=== PATIENT | female | born 1945 | race Caucasian/White ===

== ENCOUNTER 2020-08-14 18:09 | Inpatient (IN) | payer MEDICARE, OTHER ==
[~2020-08-14] VITALS: Ht 0 cm; Wt 82.7 kg
[2020-08-14 22:00] VITALS: BP 144/65
[2020-08-14 22:40] VITALS: BP 144/65
[2020-08-15] MEDS ORDERED: NITROGLYCERIN 0.4 MG SL TAB SL PRN (00:15)
[2020-08-15] MEDS ORDERED: MORPHINE SULF INJ 2 MG/ML SYRINGE 1ML IV PRN (00:15)
[2020-08-15] MEDS ORDERED: IPRATROPIUM BROM 0.5 MG/2.5ML INH SOL NEB PRN (00:15)
[2020-08-15] MEDS ORDERED: DEXTROSE (50%) 50ML SYRG IV PRN (00:15)
[2020-08-15] MEDS ORDERED: ONDANSETRON HCL 4 MG/2 ML VIAL IV PRN (00:15)
[2020-08-15] MEDS ORDERED: SENNA 8.6 MG TAB PO PRN (01:01)
[2020-08-15] MEDS ORDERED: INFLUENZA QUAD 2020-2021 0.5 ML SYRG IM ONE (02:00)
[2020-08-15] MEDS ORDERED: PNEUMOCOCCAL VACC POLYS 25 MCG/0.5 ML VIAL IM ONE (02:00)
[2020-08-15] MEDS ORDERED: PRAV20TA3 PO (02:18)
[2020-08-15] MEDS ORDERED: ALEN1TAB32 PO (02:18)
[2020-08-15] MEDS ORDERED: [UNRECOGNIZED DRUG - CODE] PO (02:18)
[2020-08-15] MEDS ORDERED: FENO134C PO (02:22)
[2020-08-15] MEDS ORDERED: ESCI5TAB PO (02:22)
[2020-08-15] MEDS ORDERED: FAMO-12 PO (02:22)
[2020-08-15] MEDS ORDERED: HYDR-392 PO (02:22)
[2020-08-15] MEDS ORDERED: GLIM2TAB33 PO (02:24)
[2020-08-15] MEDS ORDERED: LISI-275 PO (02:24)
[2020-08-15] MEDS ORDERED: BACL10TA PO (02:27)
[2020-08-15] MEDS ORDERED: GABA300C10 PO (02:27)
[2020-08-15] MEDS ORDERED: ZOLP10TA6 PO (02:27)
[2020-08-15] MEDS ORDERED: RALO60TA13 PO (02:27)
[2020-08-15] MEDS: SODIUM CHLORIDE 0.9% 1,000 ML IV SCH ×2 (03:01→13:35)
[2020-08-15 05:00] VITALS: BP 148/65
[2020-08-15] MEDS: HYDROcodone-ACET 7.5/325MG TAB PO PRN ×3 (05:24→20:10)
[2020-08-15] MEDS: ACCU-CHEK COMFORT CURVE STRIP VI SCH ×4 (06:13→22:09)
[2020-08-15] MEDS: InsuLIN REG 1unit/0.01ml Soln (100units/ml) SC SCH ×4 (06:14→22:00)
[2020-08-15 06:59] LABS: Basophils # (auto) 0 10 ^3/uL (0-0.2); Eosinophils # (auto) 0.2 10 ^3/uL (0-0.8); Hemoglobin 10.5 g/dL (12.2-16.2); White Blood Cell 5.6 10^3/uL (4.4-10.8)
[2020-08-15 07:02] LABS: Basophils % (auto) 0.5 % (0.0-2.0); Eosinophils % (auto) 3.6 % (0.0-7.0); Hematocrit 32.3 % (36.0-46.0); Lymphocytes # (auto) 0.7 10 ^3/uL (0.4-5.4); Lymphocytes % (auto) 13.3 % (10.0-50.0); Mean Corpuscular Hgb Conc. 32.6 g/dL (32.0-36.0); Mean Corpuscular Volume 79.7 fL (80.0-100.0); Monocytes # (auto) 0.5 10 ^3/uL (0-1.3); Monocytes % (auto) 8.2 % (0.0-12.0); Neutrophils # (auto) 4.2 10 ^3/uL (1.6-8.6); Neutrophils % (auto) 74.4 % (37.0-80.0); Platelet Count (auto) 337 10^3/uL (140-450); Red Blood Cells 4.05 10^6/uL (4.0-5.20); Red Cell Distribution Width 18.7 % (11.8-14.3)
[2020-08-15 07:09] LABS: Chloride 104 mmol/L (98-107); Potassium 4.8 mmol/L (3.5-5.1); Sodium 134 mmol/L (136-145)
[2020-08-15 07:48] LABS: Anion Gap 3 (5-15); BUN/Creatinine Ratio 26.8; Blood Urea Nitrogen 15 mg/dL (7-18); Calcium 8.4 mg/dL (8.5-10.1); Carbon Dioxide 27 mmol/L (21-32); GFR African American 136 mL/min; GFR Non-African American 112 mL/min; Glucose 136 mg/dL (74-106)
[2020-08-15 08:00] VITALS: BP 147/72
[2020-08-15] MEDS: ZINC SULFATE 220mg CAP or TAB PO SCH ×2 (11:19→22:02)
[2020-08-15] MEDS: ASPirin 81 mg TAB PO SCH (11:19)
[2020-08-15] MEDS: ASCORBIC ACID 500 MG TAB PO SCH (11:20)
[2020-08-15] MEDS: levETIRAcetam 500 MG TAB PO SCH ×2 (11:20→22:02)
[2020-08-15] MEDS: METOPROLOL TARTRATE 25 MG TAB PO SCH ×2 (11:20→22:03)
[2020-08-15] MEDS: ENOXAPARIN SOD 40 MG/0.4 ML SYRINGE SC SCH (11:20)
[2020-08-15] MEDS: MULTIPLE VITAMIN TAB PO SCH (11:20)
[2020-08-15 12:00] VITALS: BP 141/65
[2020-08-15 17:00] VITALS: BP 144/72
[2020-08-15] MEDS ORDERED: cefTRIAXone 1GM/50ML D5W 50 ML IV ONE ×2 (18:45→21:45)
[2020-08-15] MEDS ORDERED: PANTOPRAZOLE 40 MG/10 ML VIAL INJ IV ONE (18:45)
[2020-08-15] MEDS ORDERED: AZITHROMYCIN 500MG/ 250ML 250 ML IV ONE (18:45)
[2020-08-15 20:00] VITALS: BP 136/72
[2020-08-15 22:00] VITALS: BP 136/72
[2020-08-15] MEDS: ZOLPIDEM TARTRATE 5 MG TAB PO PRN (22:03)
[2020-08-15] MEDS: PRAVASTATIN SODIUM 20 MG TAB PO SCH (22:03)
[2020-08-15] MEDS: AZITHROMYCIN 500MG/ 250ML 250 ML IV SCH (22:04)
[2020-08-16 01:55] LABS: Urine Bacteria FEW /hpf (None Seen); Urine Blood Negative /uL (Negative); Urine Specific Gravity 1.012 (1.001-1.035); Urine WBC 1 /hpf (0 - 5)
[2020-08-16] MEDS: SODIUM CHLORIDE 0.9% 1,000 ML IV SCH ×2 (02:55→16:15)
[2020-08-16 05:29] VITALS: BP 145/66
[2020-08-16] MEDS: InsuLIN REG 1unit/0.01ml Soln (100units/ml) SC SCH ×4 (06:39→21:51)
[2020-08-16] MEDS: ACCU-CHEK COMFORT CURVE STRIP VI SCH ×4 (06:39→21:51)
[2020-08-16 07:29] LABS: Basophils # (auto) 0 10 ^3/uL (0-0.2); Eosinophils # (auto) 0.2 10 ^3/uL (0-0.8); Neutrophils # (auto) 4.4 10 ^3/uL (1.6-8.6)
[2020-08-16 07:32] LABS: Basophils % (auto) 0.7 % (0.0-2.0); Eosinophils % (auto) 3.5 % (0.0-7.0); Hematocrit 33.4 % (36.0-46.0); Hemoglobin 10.7 g/dL (12.2-16.2); Mean Corpuscular Hemoglobin 25.6 pg (28.0-32.0); Mean Corpuscular Hgb Conc. 32.2 g/dL (32.0-36.0); Mean Corpuscular Volume 79.5 fL (80.0-100.0); Monocytes # (auto) 0.3 10 ^3/uL (0-1.3); Monocytes % (auto) 5.8 % (0.0-12.0); Platelet Count (auto) 355 10^3/uL (140-450); Red Cell Distribution Width 18.8 % (11.8-14.3); White Blood Cell 5.9 10^3/uL (4.4-10.8)
[2020-08-16 07:46] LABS: Calcium 8.3 mg/dL (8.5-10.1); Magnesium 2.4 mg/dL (1.6-2.6); Potassium 4.1 mmol/L (3.5-5.1)
[2020-08-16 07:52] LABS: Bilirubin, Total 0.3 mg/dL (0.2-1.0); Total Protein 6.4 g/dL (6.4-8.2)
[2020-08-16 08:00] VITALS: BP 152/63
[2020-08-16 10:04] VITALS: BP 152/63
[2020-08-16] MEDS: cefTRIAXone 1GM/50ML D5W 50 ML IV SCH (11:32)
[2020-08-16] MEDS: PANTOPRAZOLE 40 MG/10 ML VIAL INJ IV SCH (11:32)
[2020-08-16] MEDS: ASPirin 81 mg TAB PO SCH (11:33)
[2020-08-16] MEDS: levETIRAcetam 500 MG TAB PO SCH ×2 (11:33→21:49)
[2020-08-16] MEDS: ZINC SULFATE 220mg CAP or TAB PO SCH ×2 (11:33→21:49)
[2020-08-16] MEDS: ASCORBIC ACID 500 MG TAB PO SCH (11:33)
[2020-08-16] MEDS: ENOXAPARIN SOD 40 MG/0.4 ML SYRINGE SC SCH (11:33)
[2020-08-16] MEDS: MULTIPLE VITAMIN TAB PO SCH (11:34)
[2020-08-16] MEDS: METOPROLOL TARTRATE 25 MG TAB PO SCH ×2 (11:34→21:50)
[2020-08-16] MEDS: HYDROcodone-ACET 7.5/325MG TAB PO PRN ×2 (12:20→20:26)
[2020-08-16] MEDS: PRAVASTATIN SODIUM 20 MG TAB PO SCH (21:50)
[2020-08-16] MEDS: AZITHROMYCIN 500MG/ 250ML 250 ML IV SCH (21:50)
[2020-08-16 21:59] VITALS: BP 140/63
[2020-08-17 05:00] VITALS: BP 147/80
[2020-08-17] MEDS: SODIUM CHLORIDE 0.9% 1,000 ML IV SCH ×2 (05:35→18:57)
[2020-08-17] MEDS: ACCU-CHEK COMFORT CURVE STRIP VI SCH ×4 (06:46→22:03)
[2020-08-17] MEDS: HYDROcodone-ACET 7.5/325MG TAB PO PRN ×3 (06:49→21:25)
[2020-08-17] MEDS: InsuLIN REG 1unit/0.01ml Soln (100units/ml) SC SCH ×4 (06:54→22:00)
[2020-08-17 08:44] VITALS: BP 144/66
[2020-08-17] MEDS: PANTOPRAZOLE 40 MG/10 ML VIAL INJ IV SCH (10:00)
[2020-08-17] MEDS: cefTRIAXone 1GM/50ML D5W 50 ML IV SCH (10:00)
[2020-08-17] MEDS: ASCORBIC ACID 500 MG TAB PO SCH (10:01)
[2020-08-17] MEDS: MULTIPLE VITAMIN TAB PO SCH (10:01)
[2020-08-17] MEDS: ASPirin 81 mg TAB PO SCH (10:01)
[2020-08-17] MEDS: ENOXAPARIN SOD 40 MG/0.4 ML SYRINGE SC SCH (10:01)
[2020-08-17] MEDS: levETIRAcetam 500 MG TAB PO SCH ×2 (10:01→21:23)
[2020-08-17] MEDS: METOPROLOL TARTRATE 25 MG TAB PO SCH ×2 (10:03→21:29)
[2020-08-17] MEDS: ZINC SULFATE 220mg CAP or TAB PO SCH ×2 (10:09→21:23)
[2020-08-17 13:00] VITALS: BP 120/72
[2020-08-17 16:40] VITALS: BP 147/67
[2020-08-17] MEDS: AZITHROMYCIN 500MG/ 250ML 250 ML IV SCH (21:22)
[2020-08-17] MEDS: PRAVASTATIN SODIUM 20 MG TAB PO SCH (21:23)
[2020-08-17 21:31] VITALS: BP 165/77
[2020-08-17] MEDS: ZOLPIDEM TARTRATE 5 MG TAB PO PRN (22:03)
[2020-08-18 05:00] VITALS: BP 150/78
[2020-08-18 06:11] LABS: INR 0.99 (0.9-1.15); Partial Thromboplastin Time 28.1 sec (23.0-31.2)
[2020-08-18] MEDS: InsuLIN REG 1unit/0.01ml Soln (100units/ml) SC SCH ×4 (07:00→22:00)
[2020-08-18] MEDS: ACCU-CHEK COMFORT CURVE STRIP VI SCH ×4 (07:05→22:07)
[2020-08-18] MEDS ORDERED: LIDOCAINE 2%HCL (LOCAL ANESTH.) INJ 20ML MDV ONE (07:08)
[2020-08-18] MEDS ORDERED: IOHEXOL 350 MG/ML 100ML IJ ONE ×2 (07:08→07:48)
[2020-08-18] MEDS ORDERED: diphenhdrAMINE HCL 50 MG/1 ML VL ONE (07:21)
[2020-08-18] MEDS ORDERED: ANGIOMAX 250 MG VIAL IV ONE (07:21)
[2020-08-18] MEDS ORDERED: SODIUM CHL 0.9% 0 ML ONE (07:22)
[2020-08-18] MEDS ORDERED: fentaNYL CITRATE 100 MCG/2 ML VL ONE (07:22)
[2020-08-18] MEDS ORDERED: MIDAZOLAM HCL 1MG/1ML-2 ML VIAL ONE (07:22)
[2020-08-18 10:01] VITALS: BP 153/67
[2020-08-18] MEDS: PANTOPRAZOLE 40 MG/10 ML VIAL INJ IV SCH (10:22)
[2020-08-18] MEDS: MULTIPLE VITAMIN TAB PO SCH (10:22)
[2020-08-18] MEDS: ASCORBIC ACID 500 MG TAB PO SCH (10:22)
[2020-08-18] MEDS: ENOXAPARIN SOD 40 MG/0.4 ML SYRINGE SC SCH (10:22)
[2020-08-18] MEDS: SODIUM CHLORIDE 0.9% 1,000 ML IV SCH ×2 (10:22→21:39)
[2020-08-18] MEDS: levETIRAcetam 500 MG TAB PO SCH ×2 (10:22→22:01)
[2020-08-18] MEDS: cefTRIAXone 1GM/50ML D5W 50 ML IV SCH (10:22)
[2020-08-18] MEDS: ASPirin 81 mg TAB PO SCH (10:23)
[2020-08-18] MEDS: ZINC SULFATE 220mg CAP or TAB PO SCH ×2 (10:23→22:01)
[2020-08-18] MEDS: HYDROcodone-ACET 7.5/325MG TAB PO PRN ×3 (10:23→22:41)
[2020-08-18] MEDS: METOPROLOL TARTRATE 25 MG TAB PO SCH ×2 (10:24→22:48)
[2020-08-18 11:43] LABS: Basophils # (auto) 0.1 10 ^3/uL (0-0.2); Eosinophils # (auto) 0.2 10 ^3/uL (0-0.8); Eosinophils % (auto) 4.1 % (0.0-7.0); Lymphocytes # (auto) 1.2 10 ^3/uL (0.4-5.4)
[2020-08-18 11:44] LABS: Albumin 2.9 g/dL (3.4-5.0); Calcium 8.3 mg/dL (8.5-10.1); Magnesium 2.4 mg/dL (1.6-2.6); Potassium 4.4 mmol/L (3.5-5.1)
[2020-08-18 11:45] LABS: Basophils % (auto) 1.1 % (0.0-2.0); Hematocrit 29.2 % (36.0-46.0); Hemoglobin 9.7 g/dL (12.2-16.2); Lymphocytes % (auto) 23.3 % (10.0-50.0); Mean Corpuscular Hemoglobin 26.4 pg (28.0-32.0); Mean Corpuscular Hgb Conc. 33.2 g/dL (32.0-36.0); Mean Corpuscular Volume 79.4 fL (80.0-100.0); Monocytes # (auto) 0.6 10 ^3/uL (0-1.3); Monocytes % (auto) 10.4 % (0.0-12.0); Neutrophils # (auto) 3.2 10 ^3/uL (1.6-8.6); Neutrophils % (auto) 61.1 % (37.0-80.0); Nucleated Red Blood Cells % 0.1 %; Platelet Count (auto) 351 10^3/uL (140-450); Red Blood Cells 3.68 10^6/uL (4.0-5.20); Red Cell Distribution Width 18.8 % (11.8-14.3); White Blood Cell 5.3 10^3/uL (4.4-10.8)
[2020-08-18 11:47] LABS: BUN/Creatinine Ratio 18.6; Bilirubin, Total 0.2 mg/dL (0.2-1.0)
[2020-08-18 13:00] VITALS: BP 132/96
[2020-08-18 16:36] VITALS: BP 163/85
[2020-08-18 22:00] VITALS: BP 147/62
[2020-08-18] MEDS: AZITHROMYCIN 500MG/ 250ML 250 ML IV SCH (22:01)
[2020-08-18] MEDS: PRAVASTATIN SODIUM 20 MG TAB PO SCH (22:01)
[2020-08-19 03:07] VITALS: BP 135/63
[2020-08-19] MEDS: InsuLIN REG 1unit/0.01ml Soln (100units/ml) SC SCH (06:47)
[2020-08-19] MEDS: ACCU-CHEK COMFORT CURVE STRIP VI SCH (06:47)
== END 2020-08-19 06:38 | disposition short-term general hospital (02) | DRG 286 ==
LOC: TELE-EAST 22:14 → TELE-WESTW 08-16 17:26
PROVIDERS: ADMIT Specialist; ATTEND Internal Medicine
PROC: 4A023N7 Measurement of Cardiac Sampling and Pressure, Left Heart, Percutaneous Approach (ICD-10-PCS; principal; 2020-08-18)
PROC: B2111ZZ Fluoroscopy of Multiple Coronary Arteries using Low Osmolar Contrast (ICD-10-PCS; 2020-08-18)
PROC: B2151ZZ Fluoroscopy of Left Heart using Low Osmolar Contrast (ICD-10-PCS; 2020-08-18)
DX: I25.10 Atherosclerotic heart disease of native coronary artery without angina pectoris (principal); J18.9 Pneumonia, unspecified organism; I47.2 Ventricular tachycardia; G82.20 Paraplegia, unspecified; I10 Essential (primary) hypertension; E11.649 Type 2 diabetes mellitus with hypoglycemia without coma; Z20.828 Contact with and (suspected) exposure to other viral communicable diseases; Z80.0 Family history of malignant neoplasm of digestive organs; Z87.440 Personal history of urinary (tract) infections; E11.40 Type 2 diabetes mellitus with diabetic neuropathy, unspecified
CPT/HCPCS: 36415; 71045; 80048; 80053; 81001; 82962; 83735; 83880; 84484; 85025; 85610; 85730; 86850; 86870; 86900; 86901; 87081; 87086; 87426; 93306; 99152; 99153; C9113; G0378; J0696; J1815; J2250